=== PATIENT | female | born 1955 | race Caucasian/White ===

== ENCOUNTER 2024-09-27 09:19 | Inpatient (IN) ==
[2024-09-27] MEDS ORDERED: IOPAMIDOL 100 ML BOTTLE IV ONE (09:20)
[2024-09-27] MEDS: IPRATROPIUM/ALBUTEROL 3 ML AMPUL.NEB NEB ONE (09:50)
[2024-09-27] MEDS: methylPREDNISolone SOD SUCC 125 MG/2 ML VIAL IV ONE (09:52)
[2024-09-27 10:15] LABS: Basophils # (Auto) 0.01 K/mcL (0.00-0.30); Basophils % (Auto) 0.1 % (0.0-2.0); Eosinophils % (Auto) 0.5 % (0.0-7.0); Hematocrit 42.1 % (34.1-44.9); Hemoglobin 13.2 g/dL (11.2-15.7); Lymphocytes # (Auto) 1.15 K/mcL (1.50-4.80); Lymphocytes % (Auto) 5.8 % (15.5-49.0); Mean Cell Volume 97.5 fL (80.0-100.0); Mean Corpuscular HGB Conc 31.4 g/dL (31.0-36.0); Monocytes # (Auto) 1.87 K/mcL (0.10-0.90); Monocytes % (Auto) 9.4 % (1.0-12.0); Neutrophils % (Auto) 83.9 % (38.0-78.0); Platelet Count 233 K/mcL (140-440); RBC 4.32 M/mcL (3.59-5.38); Red Cell Distribution Width 12.4 % (11.5-14.5); WBC 19.8 K/mcL (4.5-11.0)
[2024-09-27 10:34] LABS: Blood Urea Nitrogen 10 mg/dL (8-23); Calcium 9.6 mg/dL (8.6-10.4); Carbon Dioxide 27 mmol/L (22-30); Chloride 98 mmol/L (96-108); Glomerular Filtration Rate 108; Glucose 112 mg/dL (70-105); Potassium 4.1 mmol/L (3.3-5.1); Sodium 139 mmol/L (133-145)
[2024-09-27] MEDS: AZITHROMYCIN 250 MG TABLET PO ONE (11:05)
[2024-09-27] MEDS: cefTRIAXone 2 GM in DEXTROSE 5% IN WATER 50 ML IV ONE (11:27)
[2024-09-27] MEDS: fentaNYL 100 MCG/2 ML VIAL IV ONE (11:48)
[2024-09-27] MEDS ORDERED: SENNOSIDES 1 TABLET PO PRN (13:58)
[2024-09-27] MEDS ORDERED: POTASSIUM CHLORIDE 20 MEQ TABLET PO PRN ×2 (13:58)
[2024-09-27] MEDS ORDERED: POLYETHYLENE GLYCOL 3350 17 GM PACKET PO PRN (13:58)
[2024-09-27] MEDS ORDERED: POTASSIUM CHLORIDE 40 MEQ in DEXTROSE 5% IN WATER 500 ML IV PRN (13:58)
[2024-09-27] MEDS ORDERED: METOCLOPRAMIDE 10 MG/2 ML VIAL IV PRN (13:58)
[2024-09-27] MEDS ORDERED: MAGNESIUM SULFATE 2 GM/50 ML BAG IV PRN (13:58)
[2024-09-27] MEDS: IPRATROPIUM/ALBUTEROL 3 ML AMPUL.NEB NEB SCH (14:14)
[2024-09-27] MEDS: guaiFENesin 600 MG TAB.SR.12H PO SCH (14:23)
[2024-09-27] MEDS: 0.9 % SODIUM CHLORIDE 10 ML SYRINGE IV SCH (17:17)
[2024-09-27] MEDS: BUDESONIDE 0.5 MG/2 ML AMPUL.NEB NEB SCH (20:25)
[2024-09-27] MEDS: DOCUSATE SODIUM 100 MG CAPSULE PO SCH (20:55)
[2024-09-27] MEDS: methylPREDNISolone SOD SUCC 125 MG/2 ML VIAL IV SCH (21:07)
[2024-09-27] MEDS: ONDANSETRON 4 MG/2 ML VIAL IV PRN (21:10)
[2024-09-27] MEDS: HYDROcodone/APAP 5/325MG TABLET PO PRN (23:21)
[2024-09-28 06:15] LABS: ALT/SGPT 10 U/L (<40); AST/SGOT 10 U/L (<32); Albumin 3.7 gm/dL (3.2-5.2); Albumin/Globulin Ratio 1.5 (1.0-2.3); Alkaline Phosphatase 74 U/L (39-117); Bilirubin,Direct < 0.2 mg/dL (0-0.3); Bilirubin,Total < 0.2 mg/dL (0.1-1.0); Blood Urea Nitrogen 14 mg/dL (8-23); Calcium 9.5 mg/dL (8.6-10.4); Carbon Dioxide 31 mmol/L (22-30); Chloride 99 mmol/L (96-108); Globulin 2.5 gm/dL (2.2-3.7); Glomerular Filtration Rate 108; Glucose 167 mg/dL (70-105); Lactate Dehydrogenase 132 U/L (135-225); Phosphorous 2.8 mg/dL (2.5-4.5); Potassium 4.8 mmol/L (3.3-5.1); Sodium 139 mmol/L (133-145); Triglycerides 59 mg/dL (<150); Uric Acid 3.2 mg/dL (2.5-8.0)
[2024-09-28 06:21] LABS: Basophils # (Auto) 0.01 K/mcL (0.00-0.30); Basophils % (Auto) 0.1 % (0.0-2.0); Eosinophils # (Auto) 0 K/mcL (0.00-0.70); Eosinophils % (Auto) 0 % (0.0-7.0); Hematocrit 37.2 % (34.1-44.9); Lymphocytes # (Auto) 0.44 K/mcL (1.50-4.80); Lymphocytes % (Auto) 3.6 % (15.5-49.0); Mean Cell Volume 96.6 fL (80.0-100.0); Mean Corpuscular HGB Conc 32.3 g/dL (31.0-36.0); Monocytes # (Auto) 0.46 K/mcL (0.10-0.90); Monocytes % (Auto) 3.8 % (1.0-12.0); Platelet Count 244 K/mcL (140-440); RBC 3.85 M/mcL (3.59-5.38); Red Cell Distribution Width 12.1 % (11.5-14.5); WBC 12.1 K/mcL (4.5-11.0)
[2024-09-28] MEDS: buPROPion 150 MG TAB.XL.24H PO SCH (08:50)
[2024-09-28] MEDS: cefTRIAXone 1 GM VIAL IV SCH (08:51)
[2024-09-28] MEDS: ENOXAPARIN 40 MG/0.4 ML SYRINGE SQ SCH (08:52)
[2024-09-28] MEDS: THEOPHYLLINE ANHYDROUS 400 MG TAB.XL.24H PO SCH (08:54)
[2024-09-28] MEDS: AZITHROMYCIN 500 MG in 0.9 % SODIUM CHLORIDE 250 ML IV SCH (08:54)
[2024-09-28] MEDS: NICOTINE 14 MG PATCH TOPICAL SCH (09:05)
[2024-09-28] MEDS: IPRATROPIUM/ALBUTEROL 3 ML AMPUL.NEB NEB PRN (13:30)
[2024-09-28] MEDS: LORazepam 0.5 MG TABLET PO PRN (17:48)
[2024-09-28] MEDS: diphenhydrAMINE 25 MG CAPSULE PO PRN (22:05)
[2024-09-28] MEDS: ACETAMINOPHEN 325 MG TABLET PO PRN (22:05)
[2024-09-29 08:50] VITALS: TEMP 98.4; O2SAT 96
[2024-09-29] MEDS: methylPREDNISolone SOD SUCC 40 MG/ML VIAL IV SCH (08:58)
[2024-09-29] MEDS: AZITHROMYCIN 250 MG TABLET PO SCH (10:44)
== END 2024-09-29 12:10 | disposition home or self-care (01) | DRG 871 ==
LOC: ED 09:19 → MEDSUR 13:46
PROVIDERS: ADMIT Internal Medicine; ATTEND Internal Medicine